=== PATIENT | female | born 1995 | race American Indian/Alaskan Native ===

== ENCOUNTER 2016-08-26 15:41 | Emergency (ER) | payer SELFPAY ==
[2016-08-26 15:51] VITALS: BP 128/78
[2016-08-26 16:13] LABS: Hematocrit 34.2 % (30.3-42.9); Hemoglobin 10.9 gm/dl (10.1-14.3); Mean Corpuscular HGB Conc 32 % (30-34); Mean Corpuscular Volume 74 fl (79-97); Platelet Count 221 K/mm3 (140-440); Red Blood Count 4.59 M/mm3 (3.65-5.03); Red Cell Distribution Width 18.1 % (13.2-15.2)
[2016-08-26 16:16] LABS: Mean Corpuscular Hemoglobin 24 pg (28-32)
[2016-08-26 16:32] LABS: Anion Gap 17 mmol/L; Blood Urea Nitrogen 7 mg/dL (7-17); Calcium 8.8 mg/dL (8.4-10.2); Carbon Dioxide 21 mmol/L (22-30); Chloride 99.5 mmol/L (98-107); Glucose 74 mg/dL (65-100); Potassium 3.7 mmol/L (3.6-5.0); Sodium 134 mmol/L (137-145)
[2016-08-26 17:24] LABS: Bilirubin,Urine NEG (Negative); Blood,Urine NEG (Negative); Ketones,Urine NEG (Negative); Leukocyte Esterase,Urine TR (Negative); Mucus,Urine 3+ /HPF; Nitrite,Urine NEG (Negative); Protein,Urine <15 mg/dL mg/dL (Negative)
--- NOTE | 2016-08-26 19:01 | Ultrasound Report ---
FINAL REPORT PROCEDURE: US OB \T\lt; = 14 WEEKS FETUS TECHNIQUE: Real-time transabdominal and transvaginal sonography of the uterus, placenta, amniotic fluid, adnexa, and fetus was performed with image documentation. Measurements were obtained to determine age/size. M-mode Doppler was used to document heartbeat. CPT 24403 and 15841 HISTORY: preg COMPARISON: No prior studies are available for comparison. FINDINGS: ADDITIONAL GESTATION: None. Single live intrauterine is seen with crown-rump length of 3.0 cm corresponding to 9 weeks 6 days gestational age. Estimated date of delivery based on this measurement is March 25, 2017. heart rate is 171 beats per minute. Yolk sac is seen. Right ovary measures 3.0 x 1.9 x 1.6 cm. Left ovary measures 4.1 x 1.6 x 2.9 cm. No adnexal masses or free pelvic fluid are seen. IMPRESSION: 1. Single live intrauterine gestation at approximately 9 weeks 6 days 2. EDC by US March 25, 2017 3. Complete anatomic survey at 18-20 weeks suggested.
--- NOTE | 2016-08-26 19:02 | Ultrasound Report ---
FINAL REPORT PROCEDURE: US OB TRANSVAGINAL TECHNIQUE: Real-time transabdominal and transvaginal sonography of the uterus, placenta, amniotic fluid, adnexa, and fetus was performed with image documentation. Measurements were obtained to determine age/size. M-mode Doppler was used to document heartbeat. CPT 00253 and 62395 HISTORY: preg COMPARISON: No prior studies are available for comparison. FINDINGS: ADDITIONAL GESTATION: None. Single live intrauterine is seen with crown-rump length of 3.0 cm corresponding to 9 weeks 6 days gestational age. Estimated date of delivery based on this measurement is March 25, 2017. heart rate is 171 beats per minute. Yolk sac is seen. Right ovary measures 3.0 x 1.9 x 1.6 cm. Left ovary measures 4.1 x 1.6 x 2.9 cm. No adnexal masses or free pelvic fluid are seen. IMPRESSION: 1. Single live intrauterine gestation at approximately 9 weeks 6 days 2. EDC by US March 25, 2017 3. Complete anatomic survey at 18-20 weeks suggested.
== END 2016-08-26 22:07 | disposition left against medical advice (07) ==
LOC: ED 15:41
DX: R56.9 Unspecified convulsions (principal); Z53.21 Procedure and treatment not carried out due to patient leaving prior to being seen by health care provider
CPT/HCPCS: 36415; 76801; 76817; 80048; 81001; 81025; 84702; 85027; 86900; 86901